=== PATIENT | male | born 1950 | race Hispanic/Latino ===

== ENCOUNTER 2017-07-27 15:45 | Emergency (ER) | payer OTHER ==
[2017-07-27 15:56] VITALS: TEMP 98.7; O2SAT 97
--- NOTE | 2017-07-27 17:03 | ED PDOC ---
Syncope/Near Syncope/Dizziness Time Seen by Provider: 07/27/17 16:04 Chief Complaint (Nursing): Headache Chief Complaint (Provider): Memory loss, Headache History Per: Patient (Pt is a 67 yo M with PMHx of Depression presenting to ED with complaints of a transient episode of memory loss that lasted 30 minutes 3 days ago. He states that he woke up in the morning and could not remember a project that he had been working on in his house for the past few months. As per his son, he could recall who he was and his family members and there was no generalized confusion but rather on a spiecific project that he was working. Shortly after, his memory loss resolved spontaneously. On ROS, he reports having a severe pressure like bilateral headache shortly after and feeling lightheaded. He denies any weakness, numbness or tingling in extremities, blurry vision, slurred speech, LOC, chest pain, SOB, couch, fever, weight loss or recent head trauma. ) Fall Associated With With Symptoms: No Past Medical History Reviewed: Historical Data, Nursing Documentation, Vital Signs Vital Signs: Last Vital Signs Temp 98.7 F 07/27/17 15:54 Pulse 68 07/27/17 15:54 Resp 16 07/27/17 15:54 BP 123/74 07/27/17 15:54 Pulse Ox 97 07/27/17 15:54 - Medical History PMH: Depression, Hypercholesterolemia (questionably HLD; patient was put on statins in the past) - Surgical History Surgical History: No Surg Hx - Family History Family History: Denies: Stroke, Hypertension - Living Arrangements Living Arrangements: With Family - Social History Current smoker - smoking cessation education provided: No Ex-Smoker (has not smoked in the last 12 months): Yes (Quit 20+ years ago) Alcohol: Occasional Drugs: Denies - Home Medications Home Medications: Ambulatory Orders Medication Instructions Recorded Aspirin [Aspirin Chewable] 81 mg PO DAILY #30 ctb 07/27/17 - Allergies Allergies/Adverse Reactions: Allergies Allergy/AdvReac Type Severity Reaction Status Date / Time No Known Allergies Allergy Verified 07/27/17 15:53 Review of Systems ROS Statement: Except As Marked, All Systems Reviewed And Found Negative Constitutional: Negative for: Fever, Chills, Sweats, Weakness, Weight loss Eyes: Negative for: Vision Change Cardiovascular: Positive for: Light Headedness. Negative for: Chest Pain, Palpitations, Edema Respiratory: Negative for: Cough, Shortness of Breath Gastrointestinal: Negative for: Nausea, Vomiting, Abdominal Pain, Diarrhea, Constipation Genitourinary Male: Negative for: Dysuria Neurological: Negative for: Numbness, Incoordination, Change in Speech, Confusion, Seizures, Altered Mental Status, Headache, Dizziness Psych: Negative for: Psychosis, Suicidal ideation Physical Exam - Reviewed Nursing Documentation Reviewed: Yes Vital Signs Reviewed: Yes - Physical Exam Appears: Positive for: Well, Non-toxic, No Acute Distress Head Exam: Positive for: ATRAUMATIC, NORMAL INSPECTION, NORMOCEPHALIC Skin: Positive for: Normal Color, Warm, DRY Eye Exam: Positive for: EOMI, Normal appearance, PERRL ENT: Positive for: Normal ENT Inspection Neck: Positive for: Normal, Painless ROM Cardiovascular/Chest: Positive for: Regular Rate, Rhythm Respiratory: Positive for: CNT, Normal Breath Sounds Gastrointestinal/Abdominal: Positive for: Normal Exam, Bowel Sounds, Soft Back: Positive for: Normal Inspection Extremity: Positive for: Normal ROM Neurologic/Psych: Positive for: Alert, hide handler II-XII, Oriented, Mood/Affect (Pt is in a pleasant mood; ), Cerebellar Tests (Finger to nose- completed without defecits). Negative for: Motor/Sensory Deficits, Aphasia, Facial Droop - Laboratory Results Result Diagrams: 07/27/17 17:16 07/27/17 17:00 - ECG O2 Sat by Pulse Oximetry: 97 Medical Decision Making Medical Decision Making: Pt is a 67 y M with PMHx of depression with complaints of a transient episode of memory loss followed by a headache that occurred 3 days ago and resolved spontaneously. ED Course: Stroke workup Non-Con CT w/o contrast= negative for acute hemorrhage EKG- Sinus Bradycardia, Right Bundle Branch block Cxray- NML CBC, CMP, PT/PTT, Troponin- NML Lipid- elevated TAGS, LDL, Total Cholesterol Assessment: Symptoms likely due to Transient Global Amnesia exacerbated by stress or artery vasospasm. Pt will be started on daily ASA 81mg PO and will follow up OP with Dr. Pat in 1-2 weeks. Disposition - Clinical Impression Clinical Impression: Transient global amnesia - Patient ED Disposition Is Patient to be Admitted: No - Disposition Referrals: Sinan Pat MD [Staff Provider] - Disposition: Routine/Home Disposition Time: 18:44 Condition: GOOD Additional Instructions: Stroke precautions given. If patient experiences extremity weakness, numbness or tingling, dysarthria, sudden LOC, come to the ED Prescriptions: Aspirin [Aspirin Chewable] 81 mg PO DAILY #30 ctb Instructions: Transient Ischemic Attack (ED), Hyperlipidemia (GEN) Forms: [facility] (Polish)
[2017-07-27 17:23] LABS: BASO % 0.7 % (0.0-2.0); EOS # 0.2 K/uL (0.0-0.7); LYMPH # 1.7 K/uL (1.0-4.3); LYMPH % 23.4 % (20.0-40.0); MEAN CELL VOLUME 90.4 fl (80.0-94.0); MEAN CORPUSCULAR HEMOGLOBIN 30.7 pg (27.0-31.0); MEAN PLATELET VOLUME 8.3 fl (7.2-11.7); MONO # 0.8 K/uL (0.0-0.8); MONO % 10.9 % (0.0-10.0); NEUT # 4.4 K/uL (1.8-7.0); RED CELL DISTRIBUTION WIDTH 12.7 % (11.5-14.5); WHITE BLOOD COUNT 7.1 K/uL (4.8-10.8)
[2017-07-27 17:34] LABS: ALB/GLOB RATIO 1.6 (1.0-2.1); ALKALINE PHOSPHATASE 87 U/L (38-126); ALT/SGPT 35 U/L (21-72); AST/SGOT 29 U/L (17-59); BILIRUBIN,TOTAL 0.3 mg/dl (0.2-1.3); BLOOD UREA NITROGEN 29 mg/dl (9-20); CALCIUM 9.4 mg/dL (8.4-10.2); CARBON DIOXIDE 26 mmol/L (22-30); CHLORIDE 103 mmol/L (98-107); CHOLESTEROL 251 mg/dL (0-199); GFR AFRICAN-AMERICAN > 60; GLUCOSE,RANDOM 107 mg/dL (75-110); PARTIAL THROMBOPLASTIN TIME 30.8 Seconds (25.6-37.1); POTASSIUM 4.2 MMOL/L (3.6-5.0); SODIUM 140 mmol/l (132-148)
--- NOTE | 2017-07-27 18:03 | CT ---
PROCEDURE: CT HEAD WITHOUT CONTRAST. HISTORY: Memory loss X 30 minutes COMPARISON: None available. TECHNIQUE: Axial computed tomography images were obtained through the head/brain without intravenous contrast. Radiation dose: Total exam DLP = 849.08 MGy-cm. This CT exam was performed using one or more of the following dose reduction techniques: Automated exposure control, adjustment of the mA and/or kV according to patient size, and/or use of iterative reconstruction technique. FINDINGS: HEMORRHAGE: No intracranial hemorrhage. BRAIN: Talbot-white matter differentiation is preserved. There is no mass, mass effect or abnormal extra-axial fluid collection. There is no territorial infarction. VENTRICLES: There is mild age-related global parenchymal volume loss and proportionate enlargement of the ventricles and cortical sulci. CALVARIUM: The skull base and calvarium are normal. PARANASAL SINUSES: There is moderate polypoid mucosal thickening in the frontal ethmoid and right maxillary sinuses. There are retention cysts/polyps in the sphenoid sinus. There is a large polyp in the left posterior nasal cavity. MASTOID AIR CELLS: Predominantly clear. OTHER FINDINGS: None. IMPRESSION: 1. No acute intracranial abnormality. 2. Mild age-related global parenchymal volume loss. 3. Sinonasal polyposis.
--- NOTE | 2017-07-27 18:20 | RAD ---
HISTORY: TIA COMPARISON: None available. TECHNIQUE: Chest, one view. FINDINGS: Examination limited by habitus and hypoinflation. LUNGS: Mild left basilar atelectasis. Please note that chest x-ray has limited sensitivity for the detection of pulmonary masses. PLEURA: No significant pleural effusion identified. No definite pneumothorax . CARDIOVASCULAR: The cardiomediastinal silhouette appears within normal limits of size. OSSEOUS STRUCTURES: No acute osseous abnormality identified. VISUALIZED UPPER ABDOMEN: Unremarkable. OTHER FINDINGS: None. IMPRESSION: Mild left basilar atelectasis.
[2017-07-27 19:17] VITALS: BP 125/75; PULSE 69; RESP 18
--- NOTE | 2017-07-29 11:36 | CARD ---
APPROVED REPORT EKG Measurement Heart [id number] <Conclusion> Sinus bradycardia Right bundle branch block Minimal voltage criteria for LVH, may be normal variant Abnormal ECG
== END 2017-07-27 18:55 | disposition home or self-care (01) ==
LOC: H.ER 15:45
DX: R51 Headache (principal); G45.4 Transient global amnesia; I45.10 Unspecified right bundle-branch block

== ENCOUNTER 2018-03-24 08:39 | Emergency (ER) | payer OTHER, MEDICARE ==
[2018-03-24] MEDS ORDERED: Tdap Vaccine 0.5 ml Vial (10-64 yrs) IM ONE ×2 (09:22→09:28)
--- NOTE | 2018-03-24 09:58 | RAD ---
PROCEDURE: Right Hand Radiographs. HISTORY: wood FB, palm, along 5th metacarpal, injuredX1 hr COMPARISON: None. FINDINGS: BONES: No acute fracture. JOINTS: Unremarkable. SOFT TISSUES: No radiopaque foreign body. OTHER FINDINGS: None. IMPRESSION: No radiopaque foreign body.
--- NOTE | 2018-03-24 10:25 | ED PDOC ---
Upper Extremity Pain/Injury Time Seen by Provider: 03/24/18 09:15 Chief Complaint (Nursing): Abnormal Skin Integrity Chief Complaint (Provider): Upper Extremity Injury/Problem History Per: Patient History/Exam Limitations: no limitations Onset/Duration Of Symptoms: Hrs Current Symptoms Are (Timing): Still Present Additional Complaint(s): Erlin Springer is a 67 year old male with a past medical history of hyperlipidemia and depression, who is presenting to the ER with complaints of injury to the right hand, s/p falling down the stairs one hour prior to arrival. Patient states that he used his right hand to break his fall, and scraped it against his bamboo floor which had splinters on it. He reports that he had a long wood piece stuck on the ulnar side of his palm, some of which he was able to remove. Patient is concerned of wood splinter piece remaining in his palm which prompted this ED visit. He complains of pain to the right hand, which is worsened when he closes his hand. Patient denies any bleeding, loss of sensation , fever, chills, head injury, or loss of consciousness. He offers no other medical complaints at this time. Of note, patient has no allergies to medications and takes Lipitor for high cholesterol and Lexapro for depression. PMD: none provided Past Medical History Reviewed: Historical Data, Nursing Documentation, Vital Signs Vital Signs: Last Vital Signs Temp 98.7 F 03/24/18 08:47 Pulse 65 03/24/18 08:47 Resp 18 03/24/18 08:47 BP 130/72 03/24/18 08:47 Pulse Ox 97 03/24/18 08:47 - Medical History PMH: Depression, Hypercholesterolemia (questionably HLD; patient was put on statins in the past) - Surgical History Surgical History: No Surg Hx - Family History Family History: States: No Known Family Hx Denies: Stroke, Hypertension - Social History Current smoker - smoking cessation education provided: No Alcohol: None Drugs: Denies - Home Medications Home Medications: Ambulatory Orders Medication Instructions Recorded Aspirin [Aspirin Chewable] 81 mg PO DAILY #30 ctb 07/27/17 Cephalexin [cephalexin] 500 mg PO BID #14 cap 03/24/18 - Allergies Allergies/Adverse Reactions: Allergies Allergy/AdvReac Type Severity Reaction Status Date / Time No Known Allergies Allergy Verified 09/06/17 15:53 Review of Systems ROS Statement: Except As Marked, All Systems Reviewed And Found Negative Constitutional: Negative for: Fever, Chills, Other (head injury) Musculoskeletal: Positive for: Hand Pain (right, painful ROM). Negative for: Other (loss of sensation, bleeding) Neurological: Negative for: Other (loss of consciousness) Physical Exam - Reviewed Nursing Documentation Reviewed: Yes Vital Signs Reviewed: Yes - Physical Exam Appears: Positive for: Non-toxic, No Acute Distress Head Exam: Positive for: ATRAUMATIC, NORMAL INSPECTION, NORMOCEPHALIC Skin: Positive for: Normal Color Neck: Positive for: Normal, Painless ROM Respiratory: Negative for: Respiratory Distress Back: Positive for: Normal Inspection Extremity: Positive for: Other ((+) right hand: 2 skin puncture wounds- 1 to base of first phalanx, 1 to hypothenar eminence (-) induration (+) sensation inatct (-) erythema) Neurologic/Psych: Positive for: Alert, Oriented. Negative for: Motor/Sensory Deficits - ECG O2 Sat by Pulse Oximetry: 97 (RA) Pulse Ox Interpretation: Normal Medical Decision Making Medical Decision Making: Time: 9:22 Plan: --Adacel 0.5 ml IM --Tylenol 650 mg PO--X-Ray Right Hand --US Right Upper Extremity X-Ray performed to scan for foreign bodies. Provider saw no abnormalities in hand X-Ray. Ultrasound ordered for further evaluation of injury. Scribe Attestation: Documented by Debbie Lomeli, acting as a scribe for Nubia Lin MD. Provider Scribe Attestation: All medical record entries made by the Scribe were at my direction and personally dictated by me. I have reviewed the chart and agree that the record accurately reflects my personal performance of the history, physical exam, medical decision making, and the department course for this patient. I have also personally directed, reviewed, and agree with the discharge instructions and disposition. Patient seen by Dr. Munguia. Wound explored. To followup with him in 3 days ( Tuesday). Request oral antibiotics. Disposition - Clinical Impression Clinical Impression: Foreign body hand - Patient ED Disposition Is Patient to be Admitted: No Doctor Will See Patient In The: Office Counseled Patient/Family Regarding: Diagnosis, Need For Followup, Rx Given - Disposition Referrals: Yair Munguia MD [Medical Doctor] - 03/27/18 Disposition Time: 12:54 Condition: STABLE Prescriptions: Cephalexin [cephalexin] 500 mg PO BID #14 cap Instructions: Wound Care (DC) Forms: [facility] (Cypriot) - POA Present On Arrival: Falls Or Trauma
--- NOTE | 2018-03-24 10:59 | US ---
PROCEDURE: Nonvascular ultrasound of the right hand HISTORY: right palm: wood FB along 5th metacarpal COMPARISON: None. TECHNIQUE: Real-time grayscale evaluation of the right hand soft tissues FINDINGS: Shadowing approximately 1.1 cm foreign body noted in the right palm soft tissues in the lateral hypo thenar eminence along the 5th metacarpal approximately 0.5 cm beneath the skin. IMPRESSION: Approximately 1.1 cm shadowing foreign body in the right palm soft tissues as described above. Findings conveyed to Dr. Lin by Dr. Jasso at 10:57 a.m. on 03/24/2018.
[2018-03-24] MEDS ORDERED: Lidocaine 1% Inj (20ml) IJ ONE (11:20)
[2018-03-24] MEDS ORDERED: Lidocaine 1% 20 MG/2 ML PF AMP ONE (11:24)
[2018-03-24 13:01] VITALS: BP 132/74; PULSE 88; RESP 17; TEMP 98.2; O2SAT 99
--- NOTE | 2018-03-27 15:27 | OP ---
PROCEDURE DATE: 03/24/2018 PREOPERATIVE DIAGNOSES: 1. Right hand foreign body. 2. Right hand penetrating wound. PROCEDURE: 1. Right hand exploration of penetrating wound hypothenar eminence, . 2. Right hand removal foreign body complex in muscle belly of hypothenar, . SURGEON: Yair Munguia MD GRAB DRIVER: None. TYPE OF ANESTHESIA: Local. ESTIMATED BLOOD LOSS: Minimal. COMPLICATIONS: None. DESCRIPTION OF PROCEDURE: The patient was seen in the Emergency Room at [facility]. Risks and benefits of the procedure were explained. The right hand was marked. The right hand was prepped in standard surgical fashion. A 10 mL of lidocaine was injected into the hypothenar eminence for local anesthesia. Penetrating wound was explored. The wound was at base of the hypothenar muscle. Incision was made through the wound. Prior to make an incision, tourniquet was placed in the right wrist area. Normal saline was used for irrigation. Dissection was carried down through deep layers of the wound to the hypothenar eminence muscle belly. The wound was explored and foreign body was removed with use of rongeur and clamped. Local hemostasis was obtained. The wound was copiously irrigated again with normal saline. Tourniquet was deflated and the skin was closed with 4-0 nylon interrupted sutures. Sterile dressing was applied. The patient tolerated the procedure well. Yair Munguia MD
== END 2018-03-24 13:00 | disposition home or self-care (01) ==
LOC: H.ER 08:39
DX: S69.91XA Unspecified injury of right wrist, hand and finger(s), initial encounter (principal); S60.551A Superficial foreign body of right hand, initial encounter; W10.9XXA Fall (on) (from) unspecified stairs and steps, initial encounter; Y92.89 Other specified places as the place of occurrence of the external cause; E78.00 Pure hypercholesterolemia, unspecified; F32.9 Major depressive disorder, single episode, unspecified; Z79.82 Long term (current) use of aspirin

== ENCOUNTER 2018-04-24 16:40 | Emergency (ER) | payer OTHER, MEDICARE ==
[2018-04-24 17:48] VITALS: BP 117/80; PULSE 80; RESP 20; TEMP 98; O2SAT 97
[2018-04-24] MEDS ORDERED: Lidocaine 1% Inj (20ml) IJ ONE (18:46)
--- NOTE | 2018-04-24 19:00 | CT ---
PROCEDURE: CT HEAD WITHOUT CONTRAST. HISTORY: Trauma COMPARISON: Comparison made with prior CT scan of the brain dated 07/27/2017. TECHNIQUE: Axial computed tomography images were obtained through the head/brain without intravenous contrast. Radiation dose: Total exam DLP = 847.62. MGy-cm. This CT exam was performed using one or more of the following dose reduction techniques: Automated exposure control, adjustment of the mA and/or kV according to patient size, and/or use of iterative reconstruction technique. FINDINGS: HEMORRHAGE: No acute parenchymal, subarachnoid or extra-axial hemorrhage. BRAIN: No evidence of large acute infarct. . No focal areas of abnormal attenuation seen within the substance of the brain. Very mild central volume loss evidenced by slight disproportionate enlargement of the ventricles compared sulci. VENTRICLES: No obstructive hydrocephalus. CALVARIUM: There are no acute calvarial fractures.Questionable scalp laceration or scar right superior parietal region at the vertex. PARANASAL SINUSES: Mucoperiosteal inflammatory changes again seen within the right maxillary antrum. Moderate to significant mucosal thickening in the ethmoid air complex extending superiorly into the frontal sinus. . Ethmoid air cells. Suspect nasal polyps. MASTOID AIR CELLS: Unremarkable as visualized. No inflammatory changes. OTHER FINDINGS: None. IMPRESSION: No acute intracranial hemorrhage. Mild central volume loss. Questionable scar or laceration right superior parietal region at the vertex.
[2018-04-24] MEDS ORDERED: Lidocaine/Epi 1% 1:100000 20 ML IJ ONE (19:06)
--- NOTE | 2018-04-24 20:17 | ED PDOC ---
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 Patient denies LOC, nausea, vomiting and anti-coagulant use. Tetanus vaccination is UTD. PMD: none provided Past Medical History Reviewed: Historical Data, Nursing Documentation, Vital Signs Vital Signs: Last Vital Signs Temp 98 F 04/24/18 17:47 Pulse 80 04/24/18 17:47 Resp 20 04/24/18 17:47 BP 117/80 04/24/18 17:47 Pulse Ox 97 04/24/18 17:47 - Medical History PMH: Depression, Hypercholesterolemia (questionably HLD; patient was put on statins in the past) - Surgical History Surgical History: No Surg Hx - Family History Family History: States: No Known Family Hx Denies: Stroke, Hypertension - Home Medications Home Medications: Ambulatory Orders Medication Instructions Recorded Aspirin [Aspirin Chewable] 81 mg PO DAILY #30 ctb 07/27/17 Cephalexin [cephalexin] 500 mg PO BID #14 cap 03/24/18 Cephalexin [cephalexin] 500 mg PO Q6 #28 cap 04/24/18 - Allergies Allergies/Adverse Reactions: Allergies Allergy/AdvReac Type Severity Reaction Status Date / Time No Known Allergies Allergy Verified 04/24/18 17:44 Review of Systems ROS Statement: Except As Marked, All Systems Reviewed And Found Negative Skin: Positive for: Other (laceration on scalp) Physical Exam - Reviewed Nursing Documentation Reviewed: Yes Vital Signs Reviewed: Yes - Physical Exam Appears: Positive for: Non-toxic, No Acute Distress Head Exam: Positive for: NORMOCEPHALIC Skin: Positive for: Normal Color, Warm, Dry Eye Exam: Positive for: EOMI, Normal appearance, PERRL Neck: Positive for: Normal, Painless ROM, Supple Cardiovascular/Chest: Positive for: Regular Rate, Rhythm. Negative for: Murmur Respiratory: Positive for: Normal Breath Sounds. Negative for: Respiratory Distress Gastrointestinal/Abdominal: Positive for: Normal Exam, Soft. Negative for: Tenderness Extremity: Positive for: Normal ROM. Negative for: Deformity Neurologic/Psych: Positive for: Alert, Oriented. Negative for: Motor/Sensory Deficits Comments: HEAD: 6 inch superficial v-shaped laceration on the right parietal scalp with no active bleeding - ECG O2 Sat by Pulse Oximetry: 97 (RA) Pulse Ox Interpretation: Normal Medical Decision Making Medical Decision Making: Time; 17:57 Initial Plan: --CT head --Lidocaine/Epi [address] IMPRESSION: No acute intracranial hemorrhage. Mild central volume loss. Questionable scar or laceration right superior parietal region at the vertex. Scribe Attestation: Documented by Yasmin Alston, acting as a scribe for Nikos Baxter PA-C Provider Scribe Attestation: All medical record entries made by the Scribe were at my direction and personally dictated by me. I have reviewed the chart and agree that the record accurately reflects my personal performance of the history, physical exam, medical decision making, and the department course for this patient. I have also personally directed, reviewed, and agree with the discharge instructions and disposition. Procedures - Time-Out Type of Procedure: Laceration repair Site of Procedure: Parietal scalp Correct Patient (with visual ID + MR# on ID Band): Yes Correct Procedure: Yes Correct Site Marked: Yes PA/Tech: Shail - Laceration/Wound Repair laceration repair Wound Length (cm): 15 Wound's Depth, Shape: flap Wound Explored: clean Irrigated w/ Saline (ccs): 250 Betadine Prep?: Yes Anesthesia: Lidocaine w/ Epi Volume Anesthetic (ccs): 6 Wound Repaired With: Paula Wound Complexity: Simple Disposition - Clinical Impression Clinical Impression: Head injury, Scalp laceration - Patient ED Disposition Is Patient to be Admitted: No - Disposition Referrals: [facility] [Outside] Disposition: Routine/Home Disposition Time: 20:00 Condition: STABLE Additional Instructions: Staple removal 5-7 days. Follow up with PMD for further evaluation. Return to ED immediately if symptoms worsen. Prescriptions: Cephalexin [cephalexin] 500 mg PO Q6 #28 cap Instructions: Laceration Repair With [place] (DC), Minor Head Injury (DC) Forms: [facility] (Korean) Print Language: COMORAN
== END 2018-04-24 20:03 | disposition home or self-care (01) ==
LOC: H.ER 16:40
DX: S09.90XA Unspecified injury of head, initial encounter (principal); S01.01XA Laceration without foreign body of scalp, initial encounter; W22.8XXA Striking against or struck by other objects, initial encounter

== ENCOUNTER 2018-05-01 13:45 | Emergency (ER) | payer OTHER, MEDICARE ==
[2018-05-01 13:58] VITALS: BP 117/69; PULSE 67; RESP 16; TEMP 97.9; O2SAT 100
--- NOTE | 2018-05-01 14:11 | ED PDOC ---
HPI: Wound Care - HPI Time Seen by Provider: 05/01/18 13:55 Chief Complaint (Nursing): Suture/Staple Removal Chief Complaint (Provider): staple removal History Per: Patient Exam Limitations: no limitations Onset/Duration Of Symptoms: Days (x7) Current Symptoms Are (Timing): Better Location Of Injury: Anterior: Head, Posterior: Head Additional Complaint(s): 67 y/o male presents to the ED for staple removal. Patient reports being seen here at this ED 8 days ago for laceration repair. He states he hit his head on a metal pipe last week causing the injury. Requesting staple removal to the top of the head. Patient currently has no medical complaints. Of note, patient was sent home with the antibiotic Keflex. PMD: none provided Past Medical History Reviewed: Historical Data, Nursing Documentation, Vital Signs Vital Signs: Last Vital Signs Temp 97.9 F 05/01/18 13:57 Pulse 67 05/01/18 13:57 Resp 16 05/01/18 13:57 BP 117/69 05/01/18 13:57 Pulse Ox 100 05/01/18 13:57 - Medical History PMH: Depression, Hypercholesterolemia (questionably HLD; patient was put on statins in the past) - Surgical History Surgical History: No Surg Hx - Family History Family History: States: No Known Family Hx Denies: Stroke, Hypertension - Home Medications Home Medications: Ambulatory Orders Medication Instructions Recorded Aspirin [Aspirin Chewable] 81 mg PO DAILY #30 ctb 07/27/17 Cephalexin [cephalexin] 500 mg PO BID #14 cap 03/24/18 Cephalexin [cephalexin] 500 mg PO Q6 #28 cap 04/24/18 - Allergies Allergies/Adverse Reactions: Allergies Allergy/AdvReac Type Severity Reaction Status Date / Time No Known Allergies Allergy Verified 04/24/18 17:44 Review of Systems ROS Statement: Except As Marked, All Systems Reviewed And Found Negative Skin: Positive for: Other (11 [place] to the apex/crown of scalp) Physical Exam - Reviewed Nursing Documentation Reviewed: Yes Vital Signs Reviewed: Yes - Physical Exam Appears: Positive for: Well, Non-toxic, No Acute Distress Head Exam: Positive for: ATRAUMATIC, NORMAL INSPECTION, NORMOCEPHALIC Skin: Positive for: Normal Color (wound appers to have healed well, no ecchymosis, no erythema, no red streaking ) Neurologic/Psych: Positive for: Alert, Oriented (x3) - ECG O2 Sat by Pulse Oximetry: 100 (RA) Pulse Ox Interpretation: Normal Medical Decision Making Medical Decision Making: Time: 13:57 Impression: Healed wound laceration Plan: * Staple removal with discharge Scribe Attestation: Documented by Della Adorno acting as a scribe Stuart Bazzi PA-C. Scribe Attestation: All medical record entries made by the Scribe were at my direction and personally dictated by me. I have reviewed the chart and agree that the record accurately reflects my personal performance of the history, physical exam, medical decision making, and the department course for this patient. I have also personally directed, reviewed, and agree with the discharge instructions and disposition. Disposition - Clinical Impression Clinical Impression: Removal of [place] - Patient ED Disposition Is Patient to be Admitted: No Counseled Patient/Family Regarding: Diagnosis, Need For Followup - Disposition Disposition: Routine/Home Disposition Time: 15:00 Condition: STABLE Instructions: Staple Removal
== END 2018-05-01 14:25 | disposition home or self-care (01) ==
LOC: H.ER 13:45
DX: Z48.02 Encounter for removal of sutures (principal); E78.00 Pure hypercholesterolemia, unspecified; F32.9 Major depressive disorder, single episode, unspecified; Z79.82 Long term (current) use of aspirin